=== PATIENT | male | born 1965 | race Caucasian/White ===

== ENCOUNTER 2016-12-04 19:53 | Emergency (ER) | payer SELFPAY ==
--- NOTE | 2016-12-04 20:33 | ED ---
dave Saravia Timothy, scribed for Garland Hutchins MD on 12/04/16 at 2008 . Neurological HPI - HPI Summary HPI Summary: Emely Nieto is a 51 yo male presenting to [facility] with left arm numbness and weakness for the past 2 days and speech difficulty (slurring) for the past hour. He states he is having difficulty actually forming the words he is thinking. He is not in any current pain. He denies any Hx of similar Sx. His MHx includes HI 2004, angina, CAD, cardiac catheterization, coronary stent, HLD , HTN, C PAP, GERD, arthritis, herniated disks, DM, MRSA, depression, low platelets. - History of Current Complaint Chief Complaint: EDNeurologicalDeficit Stated Complaint: LT ARM NUMBNESS/UNABLE TO SPEAK RIGHT Time Seen by Provider: 12/04/16 20:04 Last Known Well Date: 12/01/16 Hx Obtained From: Patient Onset/Duration: Sudden Onset, Started days ago Timing: Constant Onset Severity: Moderate Current Severity: Moderate Neurological Deficit Location: LUE Pain Intensity: 0 Pain Scale Used: 0-10 Numeric Character: Numbness/Tingling - LUE, Motor Weakness - LUE, Impaired Speech Associated Signs and Symptoms: Positive: Weakness - LUE, Impaired Speech, Numbness - LUE - Allergy/Home Medications Allergies/Adverse Reactions: Allergies Allergy/AdvReac Type Severity Reaction Status Date / Time No Known Allergies Allergy Verified 12/04/16 19:57 PMH/Surg Hx/FS Hx/Imm Hx Endocrine/Hematology History: Reports: Hx Diabetes Denies: Hx Thyroid Disease Cardiovascular History: Reports: Hx Angina, Hx Coronary Artery Disease, Hx Hypercholesterolemia, Hx Hypertension, Hx Myocardial Infarction - 2003 Denies: Hx Valvular Heart Disease, Other Cardiovascular Problems/Disorders Respiratory History: Denies: Hx Asthma, Hx Chronic Obstructive Pulmonary Disease (COPD), Other Respiratory Problems/Disorders GI History: Reports: Hx Gastroesophageal Reflux Disease Denies: Other GI Disorders Musculoskeletal History: Reports: Hx Arthritis Denies: Other Musculoskeletal History Sensory History: Reports: Hx Contacts or Glasses - GLASSES Denies: Hx Hearing Aid Opthamlomology History: Reports: Hx Contacts or Glasses - GLASSES Neurological History: Denies: Other Neuro Impairments/Disorders Psychiatric History: Reports: Hx Depression - Surgical History Surgery Procedure, Year, and Place: Right wrist Hx Anesthesia Reactions: No Infectious Disease History: No Infectious Disease History: Reports: Hx of Known/Suspected MRSA Denies: Traveled Outside the [place] in Last 30 Days - Family History Known Family History: Positive: Cardiac Disease, Diabetes, Other - prostate cancer - Social History Alcohol Use: None Alcohol Amount: SOBER NOW Substance Use Type: Reports: None Substance Use Comment - Amount & Last Used: SOBER 20 YRS Hx Tobacco Use: No Smoking Status (MU): Never Smoked Tobacco Have You Smoked in the Last Year: No Review of Systems Constitutional: Negative Eyes: Negative ENT: Negative Cardiovascular: Negative Respiratory: Negative Gastrointestinal: Negative Genitourinary: Negative Musculoskeletal: Negative Skin: Negative Positive: Weakness - LUE, Numbness - LUE, Slurred Speech Psychological: Normal All Other Systems Reviewed And Are Negative: Yes Physical Exam Triage Information Reviewed: Yes Vital Signs On Initial Exam: Initial Vitals Temp Pulse Resp BP Pulse Ox 97.6 F 84 16 155/79 98 12/04/16 19:59 12/04/16 19:59 12/04/16 19:59 12/04/16 19:59 12/04/16 19:59 Vital Signs Reviewed: Yes Appearance: Positive: No Pain Distress, Obese Skin: Positive: Warm Head/Face: Positive: Normal Head/Face Inspection Eyes: Positive: EOMI, IAIN ENT: Positive: Hearing grossly normal Neck: Positive: Supple Respiratory/Lung Sounds: Positive: Breath Sounds Present Cardiovascular: Positive: RRR. Negative: Murmur Abdomen Description: Positive: Nontender, Soft Bowel Sounds: Positive: Present Musculoskeletal: Positive: Strength/ROM Intact Neurological: Positive: Alert, Oriented to Person Place, Time Diagnostics - Vital Signs Vital Signs Temp Pulse Resp BP Pulse Ox 12/04/16 19:59 97.6 F 84 16 155/79 98 - Laboratory Result Diagrams: 12/04/16 21:30 12/04/16 21:30 Lab Statement: Any lab studies that have been ordered have been reviewed, and results considered in the medical decision making process. - CT Brain CT Interpretation: No Acute Changes - IMPRESSION: Normal CT of the brain. CT Interpretation Completed By: Radiologist - EKG 2028 Cardiac Rate: NL - 73 BPM EKG Interpretation: NSR @ 73 BPM, normal EKG NIH Scale - NIH Scale Level of Consciousness: Alert/Keenly Responsive Ask Patient the Month and His/Her Age: Both Correct Ask Pt to Open/Close Eyes and Creative Engagement Director/Release Non-Paretic Hand: Both Correctly Best Gaze (Only Horizontal Eye Movement): Normal Visual Field Testing: No Visual Loss Facial Paresis-Pt to Smile & Close Eyes or Grimace Symmetry: Normal/Symmetrical Motor Function - Right Arm: No Drift-Holds 10 Seconds Motor Function - Left Arm: No Drift-Holds 10 Seconds Motor Function - Right Leg: No Drift-Holds 10 Seconds Motor Function - Left Leg: No Drift-Holds 10 Seconds Limb Ataxia-Must be out of Proportion to Weakness Present: Absent Sensory (Use Pinprick to Test Arms/Legs/Trunk/Face): Normal Best Language (Describe Picture, Name Items): No Aphasia Dysarthria (Read Several Words): Slurs Some Words Extinction and Inattention: No Abnormality Total Score: 1 Re-Evaluation - Re-Evaluation First Eval Re-Evaluation Time: 22:07 Change: Unchanged Comment: Pt is requesting to sign out AMA. He was informed of the results of his lab and imaging studies, and elects to sign out AMA regardless. Course/Dx - Course Assessment/Plan: Emely Nieto is a 51 yo male presenting to [facility] with numbness and wekaness in his LUE for the past 2 days, and speech impairment for the last hour. Pt medication list reviewed this visit. His EKG suggests ?. His Brain CT suggests normal examination. After clinical examination and review of his lab and imaging studies, he will sign out AMA with Dx of CVA and renal insufficiency. - Differential Dx Differential Diagnoses Neuro: Positive: Cerebrovascular Accident - Diagnoses Provider Diagnoses: CVA (cerebral vascular accident), Renal insufficiency Discharge - Discharge Plan Condition: Fair Disposition: AGAINST MEDICAL ADVICE Discharge Disposition Comment: Pt signs out AMA after being informed of preliminary test results Referrals: Chris Wilkins MD [Primary Care Provider] - The documentation as recorded by the dave nava Timothy accurately reflects the service I personally performed and the decisions made by me, Garland Hutchins MD.
--- NOTE | 2016-12-04 20:42 | RAD ---
INDICATION: Slurred speech x2 days COMPARISON: CT brain April 01, 2016 TECHNIQUE: Contiguous axial sections of the brain were obtained from the skull base to the vertex without contrast. FINDINGS: The ventricles, cisterns and sulci are within normal limits. The odell-white matter differentiation is adequately maintained and there is no sulcal effacement. No significant focal abnormality or mass effect is present. There is no evidence for intracranial hemorrhage. No significant focal osseous abnormality is present. The visualized portion of the paranasal sinuses and mastoid air cells appear clear. IMPRESSION: Normal CT of the brain.
[2016-12-04 21:42] LABS: Hematocrit 35 % (42-52); Hemoglobin 11.8 g/dl (14.0-18.0); Mean Corpuscular HGB Conc 33 g/dl (31-36); Mean Corpuscular Hemoglobin 30 pg (27-31); Mean Corpuscular Volume 90 fL (80-94); Mean Platelet Volume 9 um3 (7.4-10.4); Red Blood Count 3.91 10^6/ul (4.0-5.4); Red Cell Distribution Width 15 % (10.5-15); White Blood Count 3.8 10^3/ul (3.5-10.8)
[2016-12-04 21:46] LABS: Add Diff/Slide Review? Slide Review Added; Comments Flag Yes
[2016-12-04 21:55] LABS: BUN/Creatinine Ratio 12.8 (8-20); Calcium 9.6 mg/dL (8.6-10.3); EGFR African American 40.9 (>60); EGFR Non-African American 31.8 (>60); Globulin 3.8 g/dL (2-4); Magnesium 1.7 mg/dL (1.9-2.7); Potassium 4.7 mmol/L (3.5-5.0); Total Bilirubin 0.8 mg/dL (0.2-1.0); Total Protein 7.8 g/dL (6.4-8.9)
[2016-12-04 22:36] VITALS: BP 116/62
== END 2016-12-04 22:33 | disposition left against medical advice (07) ==
LOC: ED 19:53
DX: I63.9 Cerebral infarction, unspecified (principal); R47.89 Other speech disturbances; R53.1 Weakness; N28.9 Disorder of kidney and ureter, unspecified; I25.119 Atherosclerotic heart disease of native coronary artery with unspecified angina pectoris; I10 Essential (primary) hypertension; Z95.5 Presence of coronary angioplasty implant and graft; E11.9 Type 2 diabetes mellitus without complications; E78.00 Pure hypercholesterolemia, unspecified; K21.9 Gastro-esophageal reflux disease without esophagitis; F32.9 Major depressive disorder, single episode, unspecified; E66.9 Obesity, unspecified; Z86.14 Personal history of Methicillin resistant Staphylococcus aureus infection
CPT/HCPCS: 36415; 70450; 80053; 83605; 83735; 85025; 93005; 99283

== ENCOUNTER 2016-12-27 00:08 | Emergency (ER) | payer SELFPAY ==
[2016-12-27] MEDS ORDERED: Tetan/Diph/Pertus SYR(Tdap)* 0.5 ML SYR(BOOSTRIX) use SYR IM ONE (00:49)
--- NOTE | 2016-12-27 00:53 | ED ---
I, Oh,Rangel, scribed for Garland Hutchins MD on 12/27/16 at 0051 . Head Injury - HPI Summary HPI Summary: This 51 y/o male presents to ED for a head injury. Pt was getting out of bed when his feet got tangled and loss his balance while attempting to get out of bed. Pt reports positive LOC of unknown duration. Positive laceration at ooccipital region with controlled bleeding at this moment. Pt is currently on ASA, but denies any other blood thinner use. Pt is not UTD with tetanus shot. Plan of care involving CT scan and tetanus shot is discussed, and pt is agreeable at this moment. - History Of Current Complaint Chief Complaint: EDHeadInjury Stated Complaint: FALL/HEAD LAC Time Seen by Provider: 12/27/16 00:47 Hx Obtained From: Patient, Medical Records Mechanism Of Injury: Blunt Trauma, Fall From A Standing Position Onset/Duration: Started Hours Ago, Traumatic Pain Intensity: 9 Pain Scale Used: 0-10 Numeric Location of Head Injury: Occipital Character: Dull Associated Signs And Symptoms: LOC Duration Unknown Anticoagulant Therapy: ASA - Allergies/Home Medications Allergies/Adverse Reactions: Allergies Allergy/AdvReac Type Severity Reaction Status Date / Time No Known Allergies Allergy Verified 12/27/16 00:23 PMH/Surg Hx/FS Hx/Imm Hx Endocrine/Hematology History: Reports: Hx Diabetes Denies: Hx Thyroid Disease Cardiovascular History: Reports: Hx Angina, Hx Coronary Artery Disease, Hx Hypercholesterolemia, Hx Hypertension, Hx Myocardial Infarction - 2003 Denies: Hx Valvular Heart Disease, Other Cardiovascular Problems/Disorders Respiratory History: Denies: Hx Asthma, Hx Chronic Obstructive Pulmonary Disease (COPD), Other Respiratory Problems/Disorders GI History: Reports: Hx Gastroesophageal Reflux Disease Denies: Other GI Disorders Musculoskeletal History: Reports: Hx Arthritis Denies: Other Musculoskeletal History Sensory History: Reports: Hx Contacts or Glasses - GLASSES Denies: Hx Hearing Aid Opthamlomology History: Reports: Hx Contacts or Glasses - GLASSES Neurological History: Denies: Other Neuro Impairments/Disorders Psychiatric History: Reports: Hx Depression - Surgical History Surgery Procedure, Year, and Place: Right wrist Hx Anesthesia Reactions: No Infectious Disease History: Yes Infectious Disease History: Reports: Hx of Known/Suspected MRSA Denies: Traveled Outside the [place] in Last 30 Days - Family History Known Family History: Positive: Cardiac Disease, Diabetes, Other - prostate cancer - Social History Alcohol Use: None Alcohol Amount: SOBER NOW Substance Use Type: Reports: None Substance Use Comment - Amount & Last Used: SOBER 20 YRS Hx Tobacco Use: No Smoking Status (MU): Never Smoked Tobacco Have You Smoked in the Last Year: No Review of Systems Negative: Fever Positive: Other - Laceration at occipital region with controlled bleeding Neurological: Other - Positive head injury All Other Systems Reviewed And Are Negative: Yes Physical Exam Triage Information Reviewed: Yes Vital Signs On Initial Exam: Initial Vitals Temp Pulse Resp BP Pulse Ox 98 F 65 16 115/63 99 12/27/16 00:24 12/27/16 00:24 12/27/16 00:24 12/27/16 00:24 12/27/16 00:24 Vital Signs Reviewed: Yes Appearance: Positive: Well-Appearing, No Pain Distress Skin: Positive: Warm, Other - 5cm occipital lac Eyes: Positive: EOMI, IAIN ENT: Positive: Hearing grossly normal Neck: Positive: Supple Respiratory/Lung Sounds: Positive: Clear to Auscultation, Breath Sounds Present Cardiovascular: Positive: RRR Abdomen Description: Positive: Nontender, Soft Musculoskeletal: Positive: Strength/ROM Intact Neurological: Positive: Sensory/Motor Intact, Alert, Oriented to Person Place, Time, Normal Gait Procedures - Laceration/Wound Repair 1 Location: head Description: Linear Laceration/Wound Explored: clean Closure: Laura #__ - 5 Diagnostics - Vital Signs Vital Signs Temp Pulse Resp BP Pulse Ox 12/27/16 00:24 98 F 65 16 115/63 99 - Laboratory Lab Statement: Any lab studies that have been ordered have been reviewed, and results considered in the medical decision making process. - CT Brain CT Interpretation: No Acute Changes - Mild involutional changes. No hemorrhage. No mass. No visible infarct. Osseous strucutres are intact. CT Interpretation Completed By: Radiologist Re-Evaluation - Re-Evaluation First Eval Re-Evaluation Time: 01:42 Change: Improved Comment: MD in room to perform lac repair Head Injury Course/Dx - Diagnoses Provider Diagnoses: Head injury, Scalp laceration Discharge - Discharge Plan Condition: Improved Disposition: HOME Patient Education Materials: Head Injury (ED), Laceration (ED), Staple Care (ED ) Referrals: Chris Wilkins MD [Primary Care Provider] - 2 Days Additional Instructions: Please have your laura removed in a week. The documentation as recorded by the Gregory nava Soohyun accurately reflects the service I personally performed and the decisions made by me, Garland Hutchins MD.
[2016-12-27 02:03] VITALS: BP 100/59
--- NOTE | 2016-12-27 07:36 | RAD ---
INDICATION: Head injury, laceration. COMPARISON: Comparison is made with a prior CT of the brain from December 04, 2016. TECHNIQUE: Contiguous axial sections of the brain were obtained from the skull base to the vertex without contrast. FINDINGS: The ventricles, cisterns and sulci are within normal limits. No significant focal abnormality or mass effect is seen. There is no evidence for hemorrhage. Soft tissue swelling and a laceration is noted in the scalp in the midline posterior to the occipital bones. No fracture is seen. The visualized portion of the paranasal sinuses and mastoid air cells appear clear. IMPRESSION: NO EVIDENCE FOR ACUTE INTRACRANIAL ABNORMALITY.
== END 2016-12-27 02:06 | disposition home or self-care (01) ==
LOC: ED 00:08
DX: S01.01XA Laceration without foreign body of scalp, initial encounter (principal); S09.90XA Unspecified injury of head, initial encounter; W19.XXXA Unspecified fall, initial encounter; Y93.9 Activity, unspecified; Y92.9 Unspecified place or not applicable; Y99.9 Unspecified external cause status
CPT/HCPCS: 70450; 90471; 90715; 99283

== ENCOUNTER 2017-04-05 10:04 | Inpatient (IN) | payer MEDICARE ==
[2017-04-05 11:11] LABS: Urine Bilirubin Negative (Negative); Urine Glucose Negative (Negative); Urine Nitrite Negative (Negative)
[2017-04-05 11:17] LABS: Comments Flag Yes; Hematocrit 38 % (42-52); Mean Corpuscular HGB Conc 34 g/dl (31-36); Mean Corpuscular Hemoglobin 29 pg (27-31); Mean Corpuscular Volume 85 fL (80-94); Mean Platelet Volume 9 um3 (7.4-10.4); Red Blood Count 4.43 10^6/ul (4.0-5.4); Red Cell Distribution Width 14 % (10.5-15); White Blood Count 4.2 10^3/ul (3.5-10.8)
[2017-04-05 11:18] LABS: Add Diff/Slide Review? Slide Review Added
[2017-04-05 11:45] LABS: ALT 43 U/L (7-52); AST 58 U/L (13-39); Albumin 3.9 g/dL (3.2-5.2); Alkaline Phosphatase 117 U/L (34-104); Anion Gap 7 mmol/L (2-11); BUN/Creatinine Ratio 11.7 (8-20); Blood Urea Nitrogen 9 mg/dL (6-24); CO2 Carbon Dioxide 25 mmol/L (22-32); Calcium 9.7 mg/dL (8.6-10.3); Chloride 105 mmol/L (101-111); EGFR African American 135.9 (>60); EGFR Non-African American 105.7 (>60); Globulin 3.5 g/dL (2-4); Glucose 157 mg/dL (70-100); Sodium 137 mmol/L (133-145); Total Protein 7.4 g/dL (6.4-8.9)
[2017-04-05 11:46] LABS: Acetaminophen < 15 mcg/mL; Alcohol < 10 mg/dL (<10); Salicylate < 2.50 mg/dL (<30)
[2017-04-05 11:59] LABS: TSH (Thyroid Stimulating Horm) 0.72 mcIU/mL (0.34-5.60)
--- NOTE | 2017-04-05 12:35 | ED ---
Psychiatric Complaint - HPI Summary HPI Summary: Patient presents to the ED with feelings of hopelessness since he is "dying." When asked why he comes to the ED, he states "its my blood, its thinning and I have less than a year to live." This, however is not confirmed and he is unable to tell me what health problems he has which have been confirmed. He also states its affecting his processing and most of it is in his head. Denies SI/HI. Denies etoh or drug use. Denies medication use. - History Of Current Complaint Chief Complaint: EDMentalHealth Time Seen by Provider: 04/05/17 10:13 Hx Obtained From: Patient Onset/Duration: Gradual Onset Timing: Constant Severity Initially: Moderate Severity Currently: Moderate Character: Depressed, Fearful Aggravating Factor(s): Nothing Alleviating Factor(s): Nothing Associated Signs And Symptoms: Positive: Negative Related History: Positive For: Prior Psychiatric Issues - Risk Factor(s) Completed Suicide Risk Factors: Male, White [place] - Allergies/Home Medications Allergies/Adverse Reactions: Allergies Allergy/AdvReac Type Severity Reaction Status Date / Time No Known Allergies Allergy Verified 04/05/17 21:50 Home Medications: Home Medications Aspirin EC Low Dose* [Ecotrin EC Low Dose 81 MG*] 81 mg PO DAILY 04/05/17 [ History Confirmed 04/05/17] Lisinopril TAB* [Prinivil TAB*] 10 mg PO DAILY 04/05/17 [History Confirmed 04/05] Metoprolol Tartrate TAB* [Lopressor TAB*] 25 mg PO BID 04/05/17 [History Confirmed 04/05/17] Multivitamins/Minerals TAB* [Theragran/minerals TAB*] 1 tab PO DAILY 04/05/17 [ History Confirmed 04/05/17] PMH/Surg Hx/FS Hx/Imm Hx Previously Healthy: Yes Endocrine/Hematology History: Reports: Hx Anticoagulant Therapy - ASA, Hx Diabetes Denies: Hx Thyroid Disease Cardiovascular History: Reports: Hx Angina, Hx Coronary Artery Disease, Hx Hypercholesterolemia, Hx Hypertension, Hx Myocardial Infarction - 2003 Denies: Hx Valvular Heart Disease, Other Cardiovascular Problems/Disorders Respiratory History: Denies: Hx Asthma, Hx Chronic Obstructive Pulmonary Disease (COPD), Other Respiratory Problems/Disorders GI History: Reports: Hx Gastroesophageal Reflux Disease Denies: Other GI Disorders Musculoskeletal History: Reports: Hx Arthritis Denies: Other Musculoskeletal History Sensory History: Reports: Hx Contacts or Glasses - GLASSES Denies: Hx Hearing Aid Opthamlomology History: Reports: Hx Contacts or Glasses - GLASSES Neurological History: Denies: Other Neuro Impairments/Disorders Psychiatric History: Reports: Hx Depression - Surgical History Surgery Procedure, Year, and Place: Right wrist Hx Anesthesia Reactions: No - Immunization History Date of Tetanus Vaccine: unknown Hx Pertussis Vaccination: No Immunizations Up to Date: Unable to Obtain/Confirm Infectious Disease History: Yes Infectious Disease History: Reports: Hx of Known/Suspected MRSA Denies: Traveled Outside the [place] in Last 30 Days - Family History Known Family History: Positive: Cardiac Disease, Diabetes, Other - prostate cancer - Social History Occupation: Unemployed Lives: Alone Alcohol Use: None Alcohol Amount: SOBER NOW Hx Substance Use: No Substance Use Type: Reports: None Substance Use Comment - Amount & Last Used: SOBER 20 YRS Hx Tobacco Use: No Smoking Status (MU): Never Smoked Tobacco Have You Smoked in the Last Year: No Review of Systems Constitutional: Negative Negative: Fever, Chills, Fatigue Eyes: Negative Cardiovascular: Negative Respiratory: Negative Negative: Shortness Of Breath, Cough Gastrointestinal: Negative Genitourinary: Negative Positive: no symptoms reported, see HPI Neurological: Negative Positive: Anxious All Other Systems Reviewed And Are Negative: Yes Physical Exam Triage Information Reviewed: Yes Vital Signs On Initial Exam: Initial Vitals Temp Pulse Resp BP Pulse Ox 96.9 F 79 18 191/79 98 04/05/17 10:13 04/05/17 10:13 04/05/17 10:13 04/05/17 10:13 04/05/17 10:13 Vital Signs Reviewed: Yes Appearance: Positive: Well-Appearing, Well-Nourished Skin: Positive: Warm, Skin Color Reflects Adequate Perfusion Head/Face: Positive: Normal Head/Face Inspection Eyes: Positive: Normal, IAIN, Conjunctiva Clear Neck: Positive: Supple, No Lymphadenopathy Respiratory/Lung Sounds: Positive: Clear to Auscultation, Breath Sounds Present Cardiovascular: Positive: Normal, RRR, Pulses are Symmetrical in both Upper and Lower Extremities Musculoskeletal: Positive: Normal, Strength/ROM Intact Neurological: Positive: Speech Normal Psychiatric: Positive: Anxious, Depressed AVPU Assessment: Alert - [place] Coma Scale Coma Scale Total: 15 Diagnostics - Vital Signs Vital Signs Temp Pulse Resp BP Pulse Ox 04/05/17 10:13 96.9 F 79 18 191/79 98 - Laboratory Lab Results: Lab Results 04/05/17 04/05/17 04/05/17 Range/Units 09:05 09:05 11:00 WBC 4.2 (3.5-10.8) 10^3/ul RBC 4.43 (4.0-5.4) 10^6/ul Hgb 13.0 L (14.0-18.0) g/dl Hct 38 L (42-52) % MCV 85 (80-94) fL MCH 29 (27-31) pg MCHC 34 (31-36) g/dl RDW 14 (10.5-15) % Plt Count 75 L (150-450) 10^3/ul MPV 9 (7.4-10.4) um3 Neut % (Auto) 59.0 (38-83) % Lymph % (Auto) 25.8 (25-47) % [place] % (Auto) 8.8 (1-9) % Eos % (Auto) 5.8 (0-6) % Baso % (Auto) 0.6 (0-2) % Absolute Neuts (auto) 2.5 (1.5-7.7) 10^3/ul Absolute Lymphs (auto) 1.1 (1.0-4.8) 10^3/ul Absolute Monos (auto) 0.4 (0-0.8) 10^3/ul Absolute Eos (auto) 0.2 (0-0.6) 10^3/ul Absolute Basos (auto) 0 (0-0.2) 10^3/ul Absolute Nucleated RBC 0.01 10^3/ul Nucleated RBC % 0.2 Sodium 137 (133-145) mmol/L Potassium 4.0 (3.5-5.0) mmol/L Chloride 105 (101-111) mmol/L Carbon Dioxide 25 (22-32) mmol/L Anion Gap 7 (2-11) mmol/L BUN 9 (6-24) mg/dL Creatinine 0.77 (0.67-1.17) mg/dL Est GFR ( Amer) 135.9 (>60) Est GFR (Non-Af Amer) 105.7 (>60) BUN/Creatinine Ratio 11.7 (8-20) Glucose 157 H (70-100) mg/dL Calcium 9.7 (8.6-10.3) mg/dL Total Bilirubin 1.00 (0.2-1.0) mg/dL AST 58 H (13-39) U/L ALT 43 (7-52) U/L Alkaline Phosphatase 117 H (34-104) U/L Total Protein 7.4 (6.4-8.9) g/dL Albumin 3.9 (3.2-5.2) g/dL Globulin 3.5 (2-4) g/dL Albumin/Globulin Ratio 1.1 (1-3) TSH 0.72 (0.34-5.60) mcIU/mL Urine Color Yellow Urine Appearance Clear Urine pH 6.0 (5-9) Ur Specific [place] 1.016 (1.010-1.030) Urine Protein Negative (Negative) Urine Ketones Negative (Negative) Urine Blood Negative (Negative) Urine Nitrate Negative (Negative) Urine Bilirubin Negative (Negative) Urine Urobilinogen Positive H (Negative) Ur Leukocyte Esterase Negative (Negative) Urine Glucose Negative (Negative) Salicylates < 2.50 (<30) mg/dL Acetaminophen < 15 mcg/mL Serum Alcohol < 10 (<10) mg/dL Result Diagrams: 04/05/17 09:05 04/05/17 09:05 Lab Statement: Any lab studies that have been ordered have been reviewed, and results considered in the medical decision making process. Course/Dx - Course Course Of Treatment: Patient evaluated for MHU. He is cleared for an evaluation. - Differential Dx/Clinical Impression Differential Diagnosis/HQI/PQRI: Positive: Anxiety, Depression Provider Diagnosis: Anxiety about health Discharge - Discharge Plan Condition: Stable Disposition: ADMITTED TO [facility]
[2017-04-05] MEDS ORDERED: Nicotine Inhaler* 10 MG AMP INH PRN (14:55)
[2017-04-05] MEDS ORDERED: Nicotine GUM* 2 MG PO PRN (14:55)
[2017-04-05] MEDS ORDERED: Al Hydrox/Mg Hydrox/Simet LIQ* 30 ML UDC PO PRN (14:55)
[2017-04-05] MEDS: glipiZIDE TAB* 5 MG PO SCH (17:00)
[2017-04-05] MEDS: Multivitamins/Minerals TAB PO SCH (17:00)
[2017-04-05] MEDS: Lisinopril TAB* 10 MG PO SCH (17:00)
[2017-04-05] MEDS: Atorvastatin* 40 MG TAB PO SCH (17:34)
[2017-04-05] MEDS: Metoprolol Tartrate TAB* 25 MG PO SCH (20:05)
[2017-04-05] MEDS: metFORMIN* 500 MG TAB PO SCH (20:05)
[2017-04-06] MEDS ORDERED: traZODone TAB* 50 MG TAB ONE (01:37)
[2017-04-06] MEDS ORDERED: traZODone TAB* 50 MG TAB PO PRN (02:40)
[2017-04-06] MEDS: Atorvastatin* 40 MG TAB PO SCH (09:12)
[2017-04-06] MEDS: Aspirin EC Low Dose* 81 MG TAB.EC PO SCH (09:12)
[2017-04-06] MEDS: glipiZIDE TAB* 5 MG PO SCH (09:12)
[2017-04-06] MEDS: Vitamin THERAPEUTIC TAB PO SCH ×2 (09:13→09:29)
[2017-04-06] MEDS: Lisinopril TAB* 10 MG PO SCH (09:13)
[2017-04-06] MEDS: metFORMIN* 500 MG TAB PO SCH ×2 (09:13→20:42)
[2017-04-06] MEDS: Multivitamins/Minerals TAB PO SCH (09:13)
[2017-04-06] MEDS: Metoprolol Tartrate TAB* 25 MG PO SCH ×2 (09:13→20:43)
[2017-04-06] MEDS: Sertraline* 50 MG TAB PO SCH (09:14)
[2017-04-06] MEDS ORDERED: Nitroglycerin TAB 0.4 MG* 0.4 MG TAB SL PRN (21:32)
--- NOTE | 2017-04-07 00:05 | HP ---
HISTORY AND PHYSICAL: DATE OF ADMISSION: 04/05/17 IDENTIFYING DATA: Mr. Han is a , medically disabled, 51-year-old male who was admitted on emergency status because of suicidal ideation and inability to contract for safety. CHIEF COMPLAINT: "Basically, I came down here to !" HISTORY OF PRESENT ILLNESS: The patient relates having a history of recurrent depressive episodes for the past 17 years that he has been off all medications for the past 30 days because of insurance issues. He moved his and grandchildren to [place], [place], about 4 months ago and he went there for the last month. He asserts that he said his goodbye to his family and he returned to [facility] last and that he had discussed with his that because of his multiple health issues it was only a matter of days before he will . The patient described having had 5 myocardial infarctions, 2 strokes , he has chronic back pain from having 2 herniated disks, hypertension, hypercholesterolemia, diabetes, and he relates that he was not able to refill his prescription and his insurance got canceled while he was in [place] and he had to discontinue taking the medications. He went through severe withdrawal symptoms and he decided not to restart any medication as a result. He reportedly had a friend drive him to the emergency room of this hospital yesterday. He was at first evaluated for medical symptoms, but then during the evaluation, he complained of feeling depressed and suicidal, then he was admitted involuntarily. The patient described several-week symptoms now of low mood, anhedonia, "I am ready to ." He denies previous justino suicide attempt , any history of self-injury. He denies intent or plan to take his own life. He asserts that he is aware that suicide affects the 3 subsequent generations and that he will never do such a thing to his grandchildren. He expresses his guilt and he complains of difficulty with his attention and concentration. He has chronic issues with sleep because of obstructive sleep apnea. He endorses daytime tiredness and low energy. Denies any difficulty with eating, but asserts that he has lost about 15 pounds in the last 5 days because of "kidney issues." REVIEW OF PSYCHIATRIC SYMPTOMS: The patient denies symptoms of leatha or psychosis. He endorses worrying excessively, but he denies irritability, muscle tension. He denies panic attack, obsessive thoughts, compulsive rituals. He endorses some preoccupation that he is dying. He denies any history of trauma, abuse, or PTSD symptoms. He denies symptoms of eating disorder. 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 PAST PSYCHIATRIC HISTORY: The patient has history of 1 previous admission here in this unit in April of 2011 and prior to that, he had had a couple of admissions at [facility]. He was previously diagnosed with major depression, recurrent, severe without psychotic features. He has had outpatient care in the past at [facility]. He had also seen Dr. Willy Grullon in private practice about a year. He has been under the care of Dr. Eric palencia for the past 2 to 3 years. He is unable to recall last regimen of medication as he discontinued taking all prescribed medications. SUICIDE/HOMICIDE HISTORY: He denies any previous justino suicide attempts, self- injury, or any history of violence. PAST MEDICAL HISTORY: Remarkable for severe heart disease with 5 previous myocardial infarctions, placement of 4 stents. He is status post CVA x2. Additionally, he is morbidly obese, suffers from chronic back pain from 2 herniated disks, hypertension, diabetes, hypercholesterolemia, and obstructive sleep apnea. He does not currently have a primary care physician because of insurance issues, was last under the care of Dr. Chris Wilkins at [facility] and had also seen Dr. Faustino Castro for management of pain. SUBSTANCE ABUSE HISTORY: The patient relates that he was alcohol dependent for 20 years and has been sober for 20 years. He has been on opioid analgesics for several years because of chronic back pain, but he denies ever misusing his prescription. He denies the use of illicit drugs or tobacco. FAMILY HISTORY: The patient reports family history of polysubstance dependence and unspecified psychotic illness in his half brother. PERSONAL AND SOCIAL HISTORY: The patient was born and raised in this area by his maternal grandfather. He is the youngest of 3. His father was not around. His mother worked constantly to take care of him and his 2 siblings and left him in the care of his grandfather. The patient graduated from high school, also took vocational classes in high school for industrial electronics. 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 The patient has no service. He has been with his for 27 years and legally for the last 3. They have no children together. His 's daughter has 3 children that he considers his own grandchildren. The patient relocated his and grandchildren to [place], [place], where his who is an LP and is working on getting her degree as an RN. The patient asserts that he said his goodbyes to his family and he is not expecting to see them again alive. REVIEW OF MEDICAL SYMPTOMS: Back pain, general malaise, fatigue. PHYSICAL EXAMINATION GENERAL: He is a tall, morbidly obese, white male who looks his stated age. He appears to be in [id number]-[id number] distress. He walks with an antalgic gait. VITAL SIGNS: On admission, blood pressure is 147/91, pulse 79, respirations 16 , temperature 98.4. HEENT: Head: Atraumatic, normocephalic, symmetrical. Eyes: PERRLA. Tympanic membranes intact. Sclerae anicteric. Conjunctivae clear. NECK: Trachea midline, freely mobile. No cervical lymphadenopathy. No nuchal rigidity. LUNGS: Clear to auscultation bilaterally. HEART: Regular rate and rhythm. No murmur, gallops, or rubs. BREAST EXAM: No masses or discharge. ABDOMEN: Obese, but soft, nontender to palpation. Normal bowel sounds heard in all 4 quadrants. The patient has scars of previous gallbladder surgery. EXTREMITIES: No clubbing, cyanosis, edema, or varicosities noted. Pulses are equal and adequate in all 4 extremities. GENITAL EXAM: Not performed. RECTAL EXAM: Not performed. NEUROLOGIC: Cranial nerves II through XII are intact. Cerebellar function intact. Muscle strength grade 3/5 in lower extremities and 4/5 in upper extremities. STRUCTURAL EXAM: The patient examined in both supine and upright positions. No gross AP or lateral asymmetry. Gait and movement are within normal limits. SKIN: Skin texture, turgor, and pigmentation are within normal limits. MENTAL STATUS EXAMINATION: Finds a tall, obese 51-year-old male with male- balding hair pattern, who looks older than stated age. He is adequately groomed , casually dressed. He makes fair eye contact. He is polite, cooperative. He exhibits some degree of psychomotor retardation. No abnormal movements are observed. His speech is spontaneous, normal rate, rhythm, and volume. His affect is constricted. Mood is depressed. Thoughts are linear and goal directed. No evidence of formal thought disorder. No overt delusions. He denies auditory or visual hallucination. The patient endorses passive wish. He denies active suicidal ideation, intent, or plan, and he contracts for safety in this setting. His insight and judgment are limited. Impulse control is good. He is alert. He is oriented to time, place, and person. Attention, memory, and concentration are all fair. His fund of knowledge is adequate. Intelligence is estimated to be in normal average range. LABORATORY DATA: On admission, CBC shows hemoglobin of 13, hematocrit of 38, platelet count of 75. Complete metabolic panel shows nonfasting glucose of 157 , AST of 58, ALT of 43. Urinalysis is positive for urobilinogen. Urine toxicology screen is negative for salicylate, acetaminophen, and serum alcohol. Urine drug toxicology screen could not be found. SUMMARY: A 51-year-old male with history of previous hospitalization, previous outpatient care, previous medication trial including opioid analgesics because of chronic back pain, who was referred by a friend and was admitted because of suicidal ideation and inability to contract for safety in the setting of discontinuation of all his meds about a month ago and in the context of chronic pain and multiple health issues. The patient has past history of alcohol dependence. He denies misuse of prescribed opioid analgesics. There is a family history of polysubstance dependence and unspecified psychosis in a half sibling. The patient describes stressors of chronic back pain, financial strain on his family, multiple health issues, and desire to not let his family witness his last days, despair, pain, and trauma. DIAGNOSTIC IMPRESSION: 1. Mood disorder secondary to general medical condition (herniated disk, coronary artery disease, status post cerebrovascular accident, obesity, hypertension, diabetes, hypercholesterolemia). 2. Major depressive disorder, recurrent, severe, without psychotic features. 3. Unspecified anxiety disorder. TREATMENT PLAN: Admit to mental health unit, 15-minute checks, full code status. Legal status is emergency. Initiate comprehensive milieu, individual, and group psychotherapeutic support. Medication management was involved, obtaining a list of the patient's previous medication regimen and restart him on them as safely as he can be. We will also confer with Dr. Palencia and Dr. Castro. Discharge planning will involve coordination of his aftercare with outpatient psychiatric providers and with input from his family. [id number]/CPS #: [id number] GORDY
[2017-04-07] MEDS ORDERED: Mirtazapine TAB* 15 MG ONE (00:35)
[2017-04-07] MEDS ORDERED: Mirtazapine TAB* 15 MG PO ONE (02:00)
[2017-04-07] MEDS: metFORMIN* 500 MG TAB PO SCH ×2 (09:23→21:19)
[2017-04-07] MEDS: Atorvastatin* 40 MG TAB PO SCH (09:23)
[2017-04-07] MEDS: Metoprolol Tartrate TAB* 25 MG PO SCH ×2 (09:23→21:19)
[2017-04-07] MEDS: Vitamin THERAPEUTIC TAB PO SCH (09:23)
[2017-04-07] MEDS: Lisinopril TAB* 10 MG PO SCH (09:23)
[2017-04-07] MEDS: Aspirin EC Low Dose* 81 MG TAB.EC PO SCH (09:23)
[2017-04-07] MEDS: glipiZIDE TAB* 5 MG PO SCH (09:23)
[2017-04-07] MEDS: Multivitamins/Minerals TAB PO SCH (09:23)
[2017-04-07] MEDS: Sertraline* 50 MG TAB PO SCH (09:25)
[2017-04-08] MEDS: metFORMIN* 500 MG TAB PO SCH ×2 (10:37→20:52)
[2017-04-08] MEDS: Atorvastatin* 40 MG TAB PO SCH (10:38)
[2017-04-08] MEDS: Metoprolol Tartrate TAB* 25 MG PO SCH ×2 (10:38→20:52)
[2017-04-08] MEDS: Multivitamins/Minerals TAB PO SCH (10:38)
[2017-04-08] MEDS: Aspirin EC Low Dose* 81 MG TAB.EC PO SCH (10:38)
[2017-04-08] MEDS: Vitamin THERAPEUTIC TAB PO SCH (10:38)
[2017-04-08] MEDS: Sertraline* 50 MG TAB PO SCH (10:38)
[2017-04-08] MEDS: Lisinopril TAB* 10 MG PO SCH (10:38)
[2017-04-08] MEDS: glipiZIDE TAB* 5 MG PO SCH (10:38)
--- NOTE | 2017-04-08 14:05 | PN ---
Subjective - Subjective Service Type: 28841 Hosp care 15 min low complexity Subjective: Patient noted to be visible at times in the milieu. He is noted to continue to be focused on his failing physical health. He reported in the ED he came back to [place] to . He continues to make statements to staff reporting feelings he is ready to . Patient is noted to be med and meal compliant. Patient has completed all ADLs, displaying fair grooming and hygiene. Patient noted over the weekend to be calm ,cooperative, depressed in affect and manner. Patient reports stress also from his recently moving his family's move from [place] to [place] for his 's job as a [employer] and to give the kids better schools. Patient has allowed this provider to call his , Jessica(#[phone]). Unable to leave a message when this provider called today. Patient's contacted by staff over the weekend. Patient's noted to have backed up the patients history. Patient reports he has caused his family alot of pain. Patient reports he flew back to [place] to get his meds re-started. Patient reports he plans to return from [place] every three months as his workman comp pays for the trips. Patient reports his psychiatrist is Dr. Rosenbaum. Patient reports also >20lb wt. loss that he attributes completely to diuresis. He reports the wt. loss started 5 days ago, and reports more caloric intake daily in the last 5 days, yet he reports producing large quantities of urine. Patient reports not taking his opioid pain pills in >30 days since running out. Patient reports starting pain pills daily approx. 17yrs ago when his back was injured on the job. Patient also reports a hx of DM, HTN and significant TN and CAD hx. He is neutropenic and ED recommendation has been followed with this provider ordering an oncology consult. Will attempt to contact patient's featheredger and reducer machine. Patient reports he has not slept in "more than a month". Patient reports hx multiple failed antidepressant trials. Patient reported his desire to stay on Zoloft as it has been most effective. Patient informed this provider will discuss meds with oncology prior to changing his psychotropic med regimen. Objective - Appearance Appearance: Obese Dysmorphic Features: No Hygiene: Normal Grooming: Fairly Well Kept - Behavior Psychomotor Activities: Normal Exhibits Abnormal Movement: No - Attitude and Relatedness Attitude and Relatedness: Cooperative Eye Contact: Good - Speech Quality: Unpressured Latencies: Normal Quantity: Appropriate - Mood Patient's Decription of Mood: "Anxious" - Affect Observed Affect: Depressed Affect Consistent with: Dysphoria - Thought Process Patient's Thought Process: Coherent Thought Content: Yes Passive Wish, No Suicidal Planning, No Homicidal Ideation, No Paranoid Ideation - Sensorium Experiencing Hallucinations: No, Sensorium is Clear Type of Hallucinations: Visual: No, Auditory: No, Command: No - Level of Consciousness Level of Consciousness: Alert Orientation: Yes Intact, Yes Orientated to Time, Yes Orientated to Place, Yes Orientated to Person - Impulse Control Impulse Control: Intact - Insight and Judgement Insight and Judgement: Fair - Group Participation Particating in Group Activities: Yes - Medication Management Medication Management Adherence: Yes Assessment - Assessment Merits Inpatient Hospitalization: For Immediate Safety, For Stabilization Inpatient DSM-IV Dx: 1. MDD, R, S w/PFs. 2. Illness Anxiety d/o Plan - Plan Treatment Plan: Name: ROSALINA ROWE Birthdate: 1965 [id number] 1. Continue admission to [facility] for safety and for symptom mx. 2. Continue patient on currently Rx'd Zoloft 50mg po qam for anxiety/depressive d/o. 3. Continue patient on currently Rx'd Mirtazepine at increased dose of 30mg po qhs for anxiety/mood/insomnia. 4. Will await input from and Oncology as to patient dx appropriate changes in psychotropic med regimen. 5. Attempted to talk with patient's ,Jessica #[phone], unable to leave . 6. Obtain collateral information from recent outpt provider. 7. Patient to attend groups and participate in milieu activities. Continued Medication Management: Continue Outpt Medication Medications: Current Medications Acetaminophen (Tylenol Tab*) 650 mg PO Q4H PRN PRN Reason: for pain; or Temp >101 F Al Hydrox/Mg Hydrox/Simethicone (Maalox Plus*) 30 ml PO Q4H PRN PRN Reason: INDIGESTION Last Admin: 04/05/17 20:05 Dose: 30 ml Aspirin (Aspirin Ec Low Dose*) 81 mg PO DAILY [facility] Last Admin: 04/08/17 10:38 Dose: 81 mg Atorvastatin Calcium (Lipitor*) 40 mg PO DAILY [facility] Last Admin: 04/08/17 10:38 Dose: 40 mg Glipizide (Glucotrol Tab*) 5 mg PO QAM [facility] Last Admin: 04/08/17 10:38 Dose: 5 mg Lisinopril (Prinivil Tab*) 10 mg PO DAILY [facility] Last Admin: 04/08/17 10:38 Dose: 10 mg Metformin HCl (Glucophage*) 1,000 mg PO BID [facility] Last Admin: 04/08/17 10:37 Dose: 1,000 mg Metoprolol Tartrate (Lopressor Tab*) 25 mg PO BID [facility] Last Admin: 04/08/17 10:38 Dose: 25 mg Multivitamins (Theragran Tab*) 1 tab PO DAILY [facility] Last Admin: 04/08/17 10:38 Dose: 1 tab Multivitamins/Minerals (Theragran/Minerals Tab*) 1 tab PO DAILY [facility] Last Admin: 04/08/17 10:38 Dose: 1 tab Nicotine (Nicotine Inhaler*) 10 mg INH Q2H PRN PRN Reason: CRAVING Nicotine Polacrilex (Nicotine Gum*) 2 mg PO Q2H PRN PRN Reason: CRAVING Nitroglycerin (Nitroglycerin Tab 0.4 Mg*) 0.4 mg SL Q5M PRN PRN Reason: CHEST PAIN Sertraline HCl (Zoloft*) 50 mg PO DAILY [facility] Last Admin: 04/08/17 10:38 Dose: Not Given - Discharge Plan Discharge Plan: Outpatient Follow Up Outpatient Program: [facility]
[2017-04-08] MEDS ORDERED: Mirtazapine TAB* 15 MG PO SCH (21:00)
[2017-04-09] MEDS: metFORMIN* 500 MG TAB PO SCH ×2 (09:00→21:16)
[2017-04-09] MEDS: Multivitamins/Minerals TAB PO SCH (09:00)
[2017-04-09] MEDS: glipiZIDE TAB* 5 MG PO SCH (09:01)
[2017-04-09] MEDS: Aspirin EC Low Dose* 81 MG TAB.EC PO SCH (09:01)
[2017-04-09] MEDS: Vitamin THERAPEUTIC TAB PO SCH (09:01)
[2017-04-09] MEDS: Metoprolol Tartrate TAB* 25 MG PO SCH ×2 (09:02→21:16)
[2017-04-09] MEDS: Sertraline* 50 MG TAB PO SCH (09:02)
[2017-04-09] MEDS: Lisinopril TAB* 10 MG PO SCH (09:02)
[2017-04-09] MEDS: Atorvastatin* 40 MG TAB PO SCH (09:02)
[2017-04-09 09:41] LABS: HDL Cholesterol 35.7 mg/dL
--- NOTE | 2017-04-09 14:09 | PN ---
Subjective - Subjective Service Type: 01339 Hosp care 15 min low complexity Subjective: Patient noted to be visible at times in the milieu, isolative mostly. Patient noted to be calm in affect and is more organized and linear in TP. He reports no longer feeling he is dying, but reports he got scared when, the week prior to his ED presentation he began losing significant weight and urinating more than nml. He reported on admission he'd lost 20lbs due to diuresing. He reports today he had not been compliant with his CPAP since his move from [place] to [place] 1 month ago. He reports he was compliant with it last night. Patient educated mood and anxiety and be affected by poor sleep and poor oxygenation from not sleeping with his CPAP each night. Patient acknowledged understanding. This provider still has not been able to speak with patient's . Patient aware this provider has consulted cardiology and oncology for mx of his neutropenia and caridac issues as patient has not been seen for these issues in months and has not been med compliant in at least 1 month. Patient reports poor sleep continues. Will initiate Trazodone 100mg po qhs for insomnia. Mirtazepine will be discontinued due to ineffectiveness. Still awaiting discussion with patient's for collateral information on med hx and his overall HPI. Objective - Appearance Appearance: Well Developed/Nourished Dysmorphic Features: No Hygiene: Normal Grooming: Well Kept - Behavior Psychomotor Activities: Normal Exhibits Abnormal Movement: No - Attitude and Relatedness Attitude and Relatedness: Cooperative Eye Contact: Good - Speech Quality: Unpressured Latencies: Normal Quantity: Appropriate - Mood Patient's Decription of Mood: "Anxious" - Affect Observed Affect: Fair Affect Consistent with: Dysphoria - Thought Process Patient's Thought Process: Coherent Thought Content: No Passive Wish, No Suicidal Planning, No Homicidal Ideation, No Paranoid Ideation - Sensorium Experiencing Hallucinations: No, Sensorium is Clear Type of Hallucinations: Visual: No, Auditory: No, Command: No - Level of Consciousness Level of Consciousness: Alert Orientation: Yes Intact, Yes Orientated to Time, Yes Orientated to Place, Yes Orientated to Person - Impulse Control Impulse Control: Intact - Insight and Judgement Insight and Judgement: Fair - Group Participation Particating in Group Activities: Yes - Medication Management Medication Management Adherence: Yes Assessment - Assessment Merits Inpatient Hospitalization: For Immediate Safety, For Stabilization Inpatient DSM-IV Dx: 1. MDD, R, S w/PFs. 2. Illness Anxiety d/o Plan - Plan Treatment Plan: Name: ROSALINA ROWE Birthdate: 1965 [id number] 1. Continue admission to [facility] for safety and for symptom mx. 2. Continue patient on currently Rx'd Zoloft 50mg po qam for anxiety/depressive d/o. 3. Will D/C Mirtazepine due to ineffectiveness on insomnia. 4. Will start Trazodone 100mg po qhs for anxiety/mood/insomnia. 5. Will awaiting input from and Oncology as to patient dx appropriate changes in psychotropic med regimen. 6. Attempted to talk with patient's ,Jessica #[phone], unable to leave . 7. Obtain collateral information from recent outpt provider. 8. Patient to attend groups and participate in milieu activities. Continued Medication Management: Different Medication Medications: Current Medications Acetaminophen (Tylenol Tab*) 650 mg PO Q4H PRN PRN Reason: for pain; or Temp >101 F Al Hydrox/Mg Hydrox/Simethicone (Maalox Plus*) 30 ml PO Q4H PRN PRN Reason: INDIGESTION Last Admin: 04/05/17 20:05 Dose: 30 ml Aspirin (Aspirin Ec Low Dose*) 81 mg PO DAILY [facility] Last Admin: 04/09/17 09:01 Dose: 81 mg Atorvastatin Calcium (Lipitor*) 40 mg PO DAILY [facility] Last Admin: 04/09/17 09:02 Dose: 40 mg Glipizide (Glucotrol Tab*) 5 mg PO QAM [facility] Last Admin: 04/09/17 09:01 Dose: 5 mg Lisinopril (Prinivil Tab*) 10 mg PO DAILY [facility] Last Admin: 04/09/17 09:02 Dose: 10 mg Metformin HCl (Glucophage*) 1,000 mg PO BID [facility] Last Admin: 04/09/17 09:00 Dose: 1,000 mg Metoprolol Tartrate (Lopressor Tab*) 25 mg PO BID [facility] Last Admin: 04/09/17 09:02 Dose: 25 mg Mirtazapine (Remeron Tab*) 7.5 mg PO BEDTIME [facility] Last Admin: 04/08/17 20:52 Dose: 7.5 mg Multivitamins (Theragran Tab*) 1 tab PO DAILY [facility] Last Admin: 04/09/17 09:01 Dose: 1 tab Multivitamins/Minerals (Theragran/Minerals Tab*) 1 tab PO DAILY [facility] Last Admin: 04/09/17 09:00 Dose: 1 tab Nicotine (Nicotine Inhaler*) 10 mg INH Q2H PRN PRN Reason: CRAVING Nicotine Polacrilex (Nicotine Gum*) 2 mg PO Q2H PRN PRN Reason: CRAVING Nitroglycerin (Nitroglycerin Tab 0.4 Mg*) 0.4 mg SL Q5M PRN PRN Reason: CHEST PAIN Sertraline HCl (Zoloft*) 50 mg PO DAILY [facility] Last Admin: 04/09/17 09:02 Dose: 50 mg - Discharge Plan Discharge Plan: Outpatient Follow Up Outpatient Program: [facility]
[2017-04-09] MEDS ORDERED: traZODone TAB* 100 MG PO SCH (21:00)
--- NOTE | 2017-04-09 22:53 | CONS ---
CC: Dr. Chris Wilkins; Dr. Rasheed Tidwell; Dr. Uriostegui of the Psychiatry Department * CARDIOLOGY CONSULTATION: DATE OF CONSULT: 04/09/17 INDICATION FOR CONSULTATION: Coronary artery disease. HISTORY OF PRESENT ILLNESS: The patient is a 51-year-old gentleman with a history of coronary artery disease who is admitted to the [facility] for depression. Consultation was asked for help with his cardiac medications. In speaking with the patient, the patient denies any true anginal type symptoms. He denies any orthopnea. He denies any PND. The patient does use CPAP machine at night, for which he is having trouble keeping the CPAP on through all the night. He is being evaluated by Respiratory Therapy for his CPAP. The patient is also concerned that he has decreased blood flow to his brain causing some of his psychiatric issues. The patient is concerned that he has blockages to the carotid arteries that is causing his symptoms. The patient does have a history of coronary artery disease, history of coronary artery stenting. He had been on Plavix for his stents, but was stopped due to being more than a year out and because of his low platelets. PAST MEDICAL HISTORY: Significant for coronary artery disease, sleep apnea, depression, hypertension, hyperlipidemia, obesity. MEDICATIONS: Outpatient medications: 1. Lipitor 40 mg a day. 2. OxyContin as directed. 3. Metformin 1000 mg b.i.d. 4. Trileptal 150 mg b.i.d. 5. Adderall. 6. Cymbalta 60 mg a day. 7. Abilify 10 mg a day. 8. Aspirin 81 mg a day. 9. Lisinopril 10 mg a day. 10. Metoprolol tartrate 25 mg b.i.d. 11. Glipizide 5 mg a day. 12. Remeron 30 mg a day. 13. Ativan. 14. Lyrica. His inpatient medications: 1. Aspirin 81 mg a day. 2. Lipitor 40 mg a day. 3. Glipizide 5 mg a day. 4. Lisinopril 10 mg a day. 5. Metformin 1000 mg b.i.d. 6. Metoprolol 25 mg b.i.d. 7. Multivitamin. 8. Nicotine patch. 9. Zoloft 50 mg a day. 10. Trazodone 100 mg q.h.s. ALLERGIES: No known drug allergies. SOCIAL HISTORY: He is . He denies tobacco use. Rare alcohol use. PHYSICAL EXAMINATION: Height is 6 feet, weight 240 pounds, temperature 97.8, heart rate is 72, blood pressure 139/58, respiratory rate is 16. Sclerae anicteric. Oropharynx is pink without erythema. Carotids are 2+ without bruits. JVD is normal. Thyroid is normal. Cardiac Exam: S1, S2, without any murmurs, rubs, or gallops. PMI is normal. Lungs are clear to auscultation bilaterally. There is no dullness to percussion. Abdomen is soft, nontender, nondistended, with normoactive bowel sounds. Extremities show no edema. He has 2+ pulses throughout. The patient is awake, alert, and oriented. The patient moves all 4 extremities equally. LABORATORY DATA: Laboratory studies from 04/05/17, his CBC is within normal limits. Chemistry from 04/05/17 is normal. BUN 9, creatinine 0.7. TSH 0.72. AST and ALT are essentially normal. IMPRESSION: This is a 51-year-old gentleman with a history of coronary artery disease who is admitted to the hospital for psychiatric issues. In general, I cannot elicit any specific cardiac symptoms at this time. The patient is currently on his appropriate medications. He is on his CINDY inhibitor, aspirin, beta makayla, and statin therapy. His blood pressure appears to be in a reasonable control. At this point, I do not think any cardiac testing is necessary. I do not think any changes in medications are necessary. Please contact Cardiology if there are any further questions. The patient did question his need for a carotid evaluation. The patient does not have any bruits on exam. At this point, I do not think there is any significant value in getting carotid ultrasound. This may be necessary as an outpatient. [id number]/[facility] #: [id number] [facility] HOSPITALRoselia
[2017-04-10] MEDS: Acetaminophen TAB* 325 MG PO PRN ×2 (01:00→22:26)
[2017-04-10] MEDS: Multivitamins/Minerals TAB PO SCH (07:46)
[2017-04-10] MEDS: Metoprolol Tartrate TAB* 25 MG PO SCH ×2 (07:47→20:37)
[2017-04-10] MEDS: metFORMIN* 500 MG TAB PO SCH ×2 (07:47→20:37)
[2017-04-10] MEDS: glipiZIDE TAB* 5 MG PO SCH (07:47)
[2017-04-10] MEDS: Atorvastatin* 40 MG TAB PO SCH (07:47)
[2017-04-10] MEDS: Lisinopril TAB* 10 MG PO SCH (07:48)
[2017-04-10] MEDS: Vitamin THERAPEUTIC TAB PO SCH (07:48)
[2017-04-10] MEDS: Aspirin EC Low Dose* 81 MG TAB.EC PO SCH (07:48)
[2017-04-10] MEDS: Sertraline* 50 MG TAB PO SCH (12:55)
--- NOTE | 2017-04-10 14:09 | PN ---
Subjective - Subjective Service Type: 97528 Hosp care 15 min low complexity Subjective: Patient noted to be visible at times in the milieu, social with select peers. Patient noted to have been disorganized in TP last night, expressing bizarre ideations. Patient has not been compliant with his CPAP. Patient encouraged to be compliant with his CPAP tonight. He was informed techs would attempt to adjust pressures and find a mask that may fit more comfortably. Patient reports back pain contributes to his poor sleep. He slept approx. 2 hrs last night, and has had poor sleep since admission. This provider talked with patient's Jessica today. She attests to patient's poor sleep and CPAP/med and appt non-compliance and his travel back to [place] to get medication refills. She reports patient has no hx of suicide attempt or substance abuse/dependence. Patient educated again on the importance of sleep. He was seen and cleared by internal control consultant. specification consultant has not been by. Patient reports frustration with the move and stress he's but on his family. He reports this triggered his SI. He reports no SI/HI or AH/VH again today. Patient's is working on getting patient back to the family home in [place] by plane. Tentative discharge on Saturday. Patient reports no further excessive urination. He reports appetite has been fair. Objective - Appearance Appearance: Obese Hygiene: Normal Grooming: Well Kept - Behavior Psychomotor Activities: Normal Exhibits Abnormal Movement: No - Attitude and Relatedness Attitude and Relatedness: Cooperative Eye Contact: Good - Speech Quality: Unpressured Latencies: Normal Quantity: Appropriate - Mood Patient's Decription of Mood: "Okay" - Affect Observed Affect: Fair Affect Consistent with: Euthymia - Thought Process Patient's Thought Process: Coherent Thought Content: No Passive Wish, No Suicidal Planning, No Homicidal Ideation, No Paranoid Ideation - Sensorium Experiencing Hallucinations: No, Sensorium is Clear Type of Hallucinations: Visual: No, Auditory: No, Command: No - Level of Consciousness Level of Consciousness: Alert Orientation: Yes Intact, Yes Orientated to Time, Yes Orientated to Place, Yes Orientated to Person - Impulse Control Impulse Control: Intact - Insight and Judgement Insight and Judgement: Fair - Group Participation Particating in Group Activities: Yes - Medication Management Medication Management Adherence: Yes Assessment - Assessment Merits Inpatient Hospitalization: For Immediate Safety, For Stabilization Inpatient DSM-IV Dx: 1. MDD, R, S w/PFs. 2. Illness Anxiety d/o Plan - Plan Treatment Plan: Name: ROSALINA ROWE Birthdate: 1965 [id number] 1. Continue admission to [facility] for safety and for symptom mx. 2. Continue Zoloft 50mg po qam for anxiety/depressive d/o. 3. Will re-start Mirtazepine at 7.5mg po qhs for insomnia as patient reports s/ e on Trazodone and requested med back. 4. Will D/C Trazodone due to reported s/e of arthralgias. 5. Will start Ultram 100mg po BID for pain/insomnia 2/2 pain. 6. Awaiting specification consultant. production support consultant has deemed patient stable on current cardiac med regimen. 7. Obtained collateral information from patient's ,Jessica #[phone]. 8. Patient to attend groups and participate in milieu activities. Continued Medication Management: Different Medication Medications: Current Medications Acetaminophen (Tylenol Tab*) 650 mg PO Q4H PRN PRN Reason: for pain; or Temp >101 F Last Admin: 04/10/17 01:00 Dose: 650 mg Al Hydrox/Mg Hydrox/Simethicone (Maalox Plus*) 30 ml PO Q4H PRN PRN Reason: INDIGESTION Last Admin: 04/05/17 20:05 Dose: 30 ml Aspirin (Aspirin Ec Low Dose*) 81 mg PO DAILY [facility] Last Admin: 04/10/17 07:48 Dose: 81 mg Atorvastatin Calcium (Lipitor*) 40 mg PO DAILY [facility] Last Admin: 04/10/17 07:47 Dose: 40 mg Glipizide (Glucotrol Tab*) 5 mg PO QAM [facility] Last Admin: 04/10/17 07:47 Dose: 5 mg Lisinopril (Prinivil Tab*) 10 mg PO DAILY [facility] Last Admin: 04/10/17 07:48 Dose: 10 mg Metformin HCl (Glucophage*) 1,000 mg PO BID [facility] Last Admin: 04/10/17 07:47 Dose: 1,000 mg Metoprolol Tartrate (Lopressor Tab*) 25 mg PO BID [facility] Last Admin: 04/10/17 07:47 Dose: 25 mg Mirtazapine (Remeron Tab*) 7.5 mg PO BEDTIME [facility] Multivitamins (Theragran Tab*) 1 tab PO DAILY [facility] Last Admin: 04/10/17 07:48 Dose: 1 tab Multivitamins/Minerals (Theragran/Minerals Tab*) 1 tab PO DAILY [facility] Last Admin: 04/10/17 07:46 Dose: 1 tab Nicotine (Nicotine Inhaler*) 10 mg INH Q2H PRN PRN Reason: CRAVING Nicotine Polacrilex (Nicotine Gum*) 2 mg PO Q2H PRN PRN Reason: CRAVING Nitroglycerin (Nitroglycerin Tab 0.4 Mg*) 0.4 mg SL Q5M PRN PRN Reason: CHEST PAIN Sertraline HCl (Zoloft*) 50 mg PO DAILY [facility] Last Admin: 04/10/17 12:55 Dose: Not Given - Discharge Plan Discharge Plan: Outpatient Follow Up Outpatient Program: [place] providers
[2017-04-10] MEDS: Mirtazapine TAB* 15 MG PO SCH (20:37)
[2017-04-10] MEDS: traMADol TAB* 50 MG PO SCH (20:38)
[2017-04-10] MEDS ORDERED: Tramadol ER(NF) 200 MG TAB.ER PO SCH (21:00)
[2017-04-11] MEDS: Atorvastatin* 40 MG TAB PO SCH (08:50)
[2017-04-11] MEDS: Aspirin EC Low Dose* 81 MG TAB.EC PO SCH (08:50)
[2017-04-11] MEDS: glipiZIDE TAB* 5 MG PO SCH (08:51)
[2017-04-11] MEDS: Multivitamins/Minerals TAB PO SCH (08:51)
[2017-04-11] MEDS: metFORMIN* 500 MG TAB PO SCH ×2 (08:51→21:39)
[2017-04-11] MEDS: traMADol TAB* 50 MG PO SCH ×2 (08:52→21:39)
[2017-04-11] MEDS: Vitamin THERAPEUTIC TAB PO SCH (08:53)
[2017-04-11] MEDS: Sertraline* 50 MG TAB PO SCH (08:55)
[2017-04-11] MEDS: Lisinopril TAB* 10 MG PO SCH (09:47)
[2017-04-11] MEDS: Metoprolol Tartrate TAB* 25 MG PO SCH ×2 (09:47→21:39)
--- NOTE | 2017-04-11 12:15 | PN ---
Subjective - Subjective Service Type: 63418 Hosp care 15 min low complexity Subjective: Patient noted to be visible at times in the milieu, social with select peers, and is participating in groups and milieu activities. Patient reports ongoing significant insomnia. Patient has not been compliant with his CPAP. Patient encouraged to be compliant with his CPAP tonight. His O2 sats during bedtime hours were wnl. Patient reports ongoing back pain which contributes to his poor sleep. He reports he slept approx. 2 hrs last night. treasury management sales consultant has not been by since second consultation. He reports no SI/HI or AH/VH again today. Patient reports having a plane ticket for Saturday to purchased. He is linear in [place] and future oriented in [place] to seek Rx's for a new CPAP machine by phone from his school counsellor and reports he will be setting up Cardiology and Oncology appts in [place]. Tentative discharge on Saturday. Patient reports no further excessive urination. He reports appetite has been fair. He denies SMITH, CP, and Abd pain. Objective - Appearance Appearance: Well Developed/Nourished Dysmorphic Features: No Hygiene: Normal Grooming: Fairly Well Kept - Attitude and Relatedness Attitude and Relatedness: Cooperative Eye Contact: Fair - Speech Quality: Unpressured Latencies: Normal Quantity: Appropriate - Mood Patient's Decription of Mood: "Okay" - Affect Observed Affect: Fair Affect Consistent with: Euthymia - Thought Process Patient's Thought Process: Coherent Thought Content: No Passive Wish, No Suicidal Planning, No Homicidal Ideation, No Paranoid Ideation - Sensorium Experiencing Hallucinations: No, Sensorium is Clear Type of Hallucinations: Visual: No, Auditory: No, Command: No - Level of Consciousness Level of Consciousness: Alert Orientation: Yes Intact, Yes Orientated to Time, Yes Orientated to Place, Yes Orientated to Person - Impulse Control Impulse Control: Intact - Insight and Judgement Insight and Judgement: Fair - Group Participation Particating in Group Activities: Yes - Medication Management Medication Management Adherence: Yes Assessment - Assessment Merits Inpatient Hospitalization: For Immediate Safety, For Stabilization Inpatient DSM-IV Dx: 1. MDD, R, S w/PFs. 2. Illness Anxiety d/o Plan - Plan Treatment Plan: Name: ROSALINA ROWE Birthdate: 1965 [id number] 1. Continue admission to [facility] for safety and for symptom mx. 2. Continue Zoloft 50mg po qam for anxiety/depressive d/o. 3. Continue Mirtazepine at 7.5mg po qhs for insomnia as patient reports s/e on Trazodone and requested med back. 4. Will D/C Trazodone due to reported s/e of arthralgias. 5. Patient gives informed consent to start Seroquel 50mg po qhs for significant insomnia. 6. Continue Ultram 100mg po BID for pain/insomnia 2/2 pain. 7. Awaiting treasury management sales consultant re-called. Patient's informed and she reports she will be setting patient up with PCP, Cariology and Oncology in [place]. regulatory affairs consultant has deemed patient stable on current cardiac med regimen. 8. Obtained collateral information from patient's ,Jessica #[phone]. 9. Patient to attend groups and participate in milieu activities. Continued Medication Management: Start Medication Medications: Current Medications Acetaminophen (Tylenol Tab*) 650 mg PO Q4H PRN PRN Reason: for pain; or Temp >101 F Last Admin: 04/10/17 22:26 Dose: 650 mg Al Hydrox/Mg Hydrox/Simethicone (Maalox Plus*) 30 ml PO Q4H PRN PRN Reason: INDIGESTION Last Admin: 04/05/17 20:05 Dose: 30 ml Aspirin (Aspirin Ec Low Dose*) 81 mg PO DAILY [facility] Last Admin: 04/11/17 08:50 Dose: 81 mg Atorvastatin Calcium (Lipitor*) 40 mg PO DAILY [facility] Last Admin: 04/11/17 08:50 Dose: 40 mg Glipizide (Glucotrol Tab*) 5 mg PO QAM [facility] Last Admin: 04/11/17 08:51 Dose: 5 mg Lisinopril (Prinivil Tab*) 10 mg PO DAILY [facility] Last Admin: 04/11/17 09:47 Dose: 10 mg Metformin HCl (Glucophage*) 1,000 mg PO BID [facility] Last Admin: 04/11/17 08:51 Dose: 1,000 mg Metoprolol Tartrate (Lopressor Tab*) 25 mg PO BID [facility] Last Admin: 04/11/17 09:47 Dose: 25 mg Mirtazapine (Remeron Tab*) 7.5 mg PO BEDTIME [facility] Last Admin: 04/10/17 20:37 Dose: 7.5 mg Multivitamins (Theragran Tab*) 1 tab PO DAILY [facility] Last Admin: 04/11/17 08:53 Dose: Not Given Multivitamins/Minerals (Theragran/Minerals Tab*) 1 tab PO DAILY [facility] Last Admin: 04/11/17 08:51 Dose: 1 tab Nicotine (Nicotine Inhaler*) 10 mg INH Q2H PRN PRN Reason: CRAVING Nicotine Polacrilex (Nicotine Gum*) 2 mg PO Q2H PRN PRN Reason: CRAVING Nitroglycerin (Nitroglycerin Tab 0.4 Mg*) 0.4 mg SL Q5M PRN PRN Reason: CHEST PAIN Sertraline HCl (Zoloft*) 50 mg PO DAILY [facility] Last Admin: 04/11/17 08:55 Dose: Not Given Tramadol HCl (Ultram*) 100 mg PO BID [facility] Last Admin: 04/11/17 08:52 Dose: 100 mg - Discharge Plan Discharge Plan: Outpatient Follow Up Outpatient Program: Private Clinician(s)
[2017-04-11] MEDS ORDERED: traMADol TAB* 50 MG PO ONE (15:36)
[2017-04-11] MEDS ORDERED: QUEtiapine TAB* 25 MG PO SCH (21:00)
[2017-04-11] MEDS: Mirtazapine TAB* 15 MG PO SCH (21:40)
[2017-04-12] MEDS: Acetaminophen TAB* 325 MG PO PRN (02:10)
[2017-04-12] MEDS: Sertraline* 50 MG TAB PO SCH (08:35)
[2017-04-12] MEDS: Metoprolol Tartrate TAB* 25 MG PO SCH (08:35)
[2017-04-12] MEDS: Vitamin THERAPEUTIC TAB PO SCH (08:35)
[2017-04-12] MEDS ORDERED: QUEtiapine TAB* 25 MG PO SCH (09:00)
[2017-04-12] MEDS: metFORMIN* 500 MG TAB PO SCH (09:15)
[2017-04-12] MEDS: Aspirin EC Low Dose* 81 MG TAB.EC PO SCH (09:16)
[2017-04-12] MEDS: Atorvastatin* 40 MG TAB PO SCH (09:16)
[2017-04-12] MEDS: traMADol TAB* 50 MG PO SCH (09:16)
[2017-04-12] MEDS: Lisinopril TAB* 10 MG PO SCH (09:17)
[2017-04-12] MEDS: Multivitamins/Minerals TAB PO SCH (09:17)
[2017-04-12] MEDS: glipiZIDE TAB* 5 MG PO SCH (09:17)
[2017-04-12 10:45] VITALS: BP 119/53
--- NOTE | 2017-04-15 02:48 | DS ---
Subjective - Subjective Service Types: [id number] [facility] [place] Day Mgmt simple under 30 min Subjective: Patient noted to be visible most of the day in the milieu, pleasant, social with peers and attending groups. Patient denied med s/e's. Patient again denied SI/HI and AH/VH. Patient is psychiatrically stable. Discharge plan has been discussed witth patient. Patient instructed to call the crisis hotline, 911, or self present to a local ED if SI recurs. Patient was discharged. Objective - Appearance Appearance: Well Developed/Nourished, Obese Dysmorphic Features: No Hygiene: Normal Grooming: Well Kept - Behavior Psychomotor Activities: Normal Exhibits Abnormal Movement: No - Attitude and Relatedness Attitude and Relatedness: Cooperative - Affect Observed Affect: Fair Affect Consistent with: Euthymia - Thought Process Patient's Thought Process: Coherent Thought Content: No Passive Wish, No Suicidal Planning, No Homicidal Ideation, No Paranoid Ideation - Sensorium Experiencing Hallucinations: No, Sensorium is Clear Type of Hallucinations: Visual: No, Auditory: No, Command: No - Level of Consciousness Level of Consciousness: Alert - Impulse Control Impulse Control: Intact - Group Participation Particating in Group Activities: Yes - Medication Management Medication Management Adherence: Yes Treatment Course & Assessment Clinical Course & Impression: HOSPITAL COURSE: On admission day #2, this provider took over as primary on the case, noted to be visible at times in the milieu. He is noted to continue to be focused on his failing physical health. He reported in the ED he came back to [place] to . He continues to make statements to staff reporting feelings he is ready to . Patient is noted to be med and meal compliant. Patient has completed all ADLs, displaying fair grooming and hygiene. Patient noted over the weekend to be calm ,cooperative, depressed in affect and manner. Patient reports stress also from his recently moving his family's move from [place] to [place] for his 's job as a CAR DISPATCHER and to give the kids better schools. Patient has allowed this provider to call his , Jessica(#[phone]). Unable to leave a message when this provider called today. Patient's contacted by staff over the weekend. Patient's noted to have backed up the patients history. Patient reports he has caused his family alot of pain. Patient reports he flew back to [place] to get his meds re-started. Patient reports he plans to return from [place] every three months as his workman comp pays for the trips. Patient reports his psychiatrist is Dr. Rosenbaum. Patient reports also >20lb wt. loss that he attributes completely to diuresis. He reports the wt. loss started 5 days ago, and reports more caloric intake daily in the last 5 days, yet he reports producing large quantities of urine. Patient reports not taking his opioid pain pills in >30 days since running out. Patient reports starting pain pills daily approx. 17yrs ago when his back was injured on the job. Patient also reports a hx of DM, HTN and significant KS and CAD hx. He is neutropenic and ED recommendation has been followed with this provider ordering an oncology consult. 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 Patient reports he has not slept in "more than a month". Patient reports hx multiple failed antidepressant trials. Patient reported his desire to stay on Zoloft as it has been most effective. Patient informed this provider will discuss meds with oncology prior to changing his psychotropic med regimen. On admission day #3,patient noted to be visible at times in the milieu, isolative mostly. Patient noted to be calm in affect and is more organized and linear in TP. He reports no longer feeling he is dying, but reports he got scared when, the week prior to his ED presentation he began losing significant weight and urinating more than nml. He reported on admission he'd lost 20lbs due to diuresing. He reports today he had not been compliant with his CPAP since his move from [place] to [place] 1 month ago. He reports he was compliant with it last night. Patient educated mood and anxiety and be affected by poor sleep and poor oxygenation from not sleeping with his CPAP each night. Patient acknowledged understanding. This provider still has not been able to speak with patient's . Patient aware this provider has consulted cardiology and oncology for mx of his neutropenia and caridac issues as patient has not been seen for these issues in months and has not been med compliant in at least 1 month. Patient reports poor sleep continues. Will initiate Trazodone 100mg po qhs for insomnia. Mirtazepine will be discontinued due to ineffectiveness. Still awaiting discussion with patient's for collateral information on med hx and his overall HPI. On admission day #5, patient noted to be visible at times in the milieu, social with select peers, and is participating in groups and milieu activities. Patient reports ongoing significantinsomnia. Patient has not been compliant with his CPAP. Patient encouraged to be compliant with his CPAP tonight. His O2 sats during bedtime hours were wnl. Patient reports ongoing back pain which contributes to his poor sleep. He reports he slept approx. 2 hrs last night. strategy planning consultant has not been by since second consultation. He reports no SI/HI or AH/VH again today. Patient reports having a plane ticket for Saturday to purchased. He is linear in [place] and future oriented in [place] to seek Rx's for a new CPAP machine by phone from his vice president investor relations and reports he will be setting up Cardiology and Oncology appts in [place]. Tentative discharge on tomorrow. Patient reports no further excessive urination. He reports appetite has been fair. He denies SMITH, CP, and Abd pain. On admission day #6, day of discharge, patient noted to be visible most of the day in the milieu, pleasant, social with peers and attending groups. Patient denied med s/e's. Patient again denied SI/HI and AH/VH. Patient is psychiatrically stable. Discharge plan has been discussed with patient. Patient instructed to call the crisis hotline, 911, or self present to a local ED if SI recurs. Patient was discharged. PERTINENT LABS: Laboratory Tests 04/05/17 04/05/17 04/05/17 09:05 09:05 09:05 WBC 4.2 RBC 4.43 Hgb 13.0 L Hct 38 L MCV 85 MCH 29 MCHC 34 RDW 14 Plt Count 75 L MPV 9 Neut % (Auto) 59.0 Lymph % (Auto) 25.8 [place] % (Auto) 8.8 Eos % (Auto) 5.8 Baso % (Auto) 0.6 Absolute Neuts (auto) 2.5 Absolute Lymphs (auto) 1.1 Absolute Monos (auto) 0.4 Absolute Eos (auto) 0.2 Absolute Basos (auto) 0 Absolute Nucleated RBC 0.01 Nucleated RBC % 0.2 Sodium 137 Potassium 4.0 Chloride 105 Carbon Dioxide 25 Anion Gap 7 BUN 9 Creatinine 0.77 Est GFR ( Amer) 135.9 Est GFR (Non-Af Amer) 105.7 BUN/Creatinine Ratio 11.7 Glucose 157 H POC Glucose (mg/dL) Hemoglobin A1c 7.9 H Calcium 9.7 Total Bilirubin 1.00 AST 58 H ALT 43 Alkaline Phosphatase 117 H Total Protein 7.4 Albumin 3.9 Globulin 3.5 Albumin/Globulin Ratio 1.1 Triglycerides Cholesterol LDL Cholesterol HDL Cholesterol Vitamin B12 TSH 0.72 Urine Color Urine Appearance Urine pH Ur Specific [place] Urine Protein Urine Ketones Urine Blood Urine Nitrate Urine Bilirubin Urine Urobilinogen Ur Leukocyte Esterase Urine Glucose Salicylates < 2.50 Acetaminophen < 15 Serum Alcohol < 10 04/05/17 04/05/17 04/07/17 11:00 17:03 07:28 WBC RBC Hgb Hct MCV MCH MCHC RDW Plt Count MPV Neut % (Auto) Lymph % (Auto) [place] % (Auto) Eos % (Auto) Baso % (Auto) Absolute Neuts (auto) Absolute Lymphs (auto) Absolute Monos (auto) Absolute Eos (auto) Absolute Basos (auto) Absolute Nucleated RBC Nucleated RBC % Sodium Potassium Chloride Carbon Dioxide Anion Gap BUN Creatinine Est GFR ( Amer) Est GFR (Non-Af Amer) BUN/Creatinine Ratio Glucose POC Glucose (mg/dL) 185 H 181 H Hemoglobin A1c Calcium Total Bilirubin AST ALT Alkaline Phosphatase Total Protein Albumin Globulin Albumin/Globulin Ratio Triglycerides Cholesterol LDL Cholesterol HDL Cholesterol Vitamin B12 TSH Urine Color Yellow Urine Appearance Clear Urine pH 6.0 Ur Specific [place] 1.016 Urine Protein Negative Urine Ketones Negative Urine Blood Negative Urine Nitrate Negative Urine Bilirubin Negative Urine Urobilinogen Positive H Ur Leukocyte Esterase Negative Urine Glucose Negative Salicylates Acetaminophen Serum Alcohol 04/08/17 04/08/17 04/09/17 01:02 07:42 01:16 WBC RBC Hgb Hct MCV MCH MCHC RDW Plt Count MPV Neut % (Auto) Lymph % (Auto) [place] % (Auto) Eos % (Auto) Baso % (Auto) Absolute Neuts (auto) Absolute Lymphs (auto) Absolute Monos (auto) Absolute Eos (auto) Absolute Basos (auto) Absolute Nucleated RBC Nucleated RBC % Sodium Potassium Chloride Carbon Dioxide Anion Gap BUN Creatinine Est GFR ( Amer) Est GFR (Non-Af Amer) BUN/Creatinine Ratio Glucose POC Glucose (mg/dL) 141 H 173 H 161 H Hemoglobin A1c Calcium Total Bilirubin AST ALT Alkaline Phosphatase Total Protein Albumin Globulin Albumin/Globulin Ratio Triglycerides Cholesterol LDL Cholesterol HDL Cholesterol Vitamin B12 TSH Urine Color Urine Appearance Urine pH Ur Specific [place] Urine Protein Urine Ketones Urine Blood Urine Nitrate Urine Bilirubin Urine Urobilinogen Ur Leukocyte Esterase Urine Glucose Salicylates Acetaminophen Serum Alcohol 04/09/17 04/09/17 04/09/17 07:18 08:07 08:07 WBC RBC Hgb Hct MCV MCH MCHC RDW Plt Count MPV Neut % (Auto) Lymph % (Auto) [place] % (Auto) Eos % (Auto) Baso % (Auto) Absolute Neuts (auto) Absolute Lymphs (auto) Absolute Monos (auto) Absolute Eos (auto) Absolute Basos (auto) Absolute Nucleated RBC Nucleated RBC % Sodium Potassium Chloride Carbon Dioxide Anion Gap BUN Creatinine Est GFR ( Amer) Est GFR (Non-Af Amer) BUN/Creatinine Ratio Glucose POC Glucose (mg/dL) 200 H Hemoglobin A1c Calcium Total Bilirubin AST ALT Alkaline Phosphatase Total Protein Albumin Globulin Albumin/Globulin Ratio Triglycerides 117 Cholesterol 133 LDL Cholesterol 74 HDL Cholesterol 35.7 Vitamin B12 597 TSH Urine Color Urine Appearance Urine pH Ur Specific [place] Urine Protein Urine Ketones Urine Blood Urine Nitrate Urine Bilirubin Urine Urobilinogen Ur Leukocyte Esterase Urine Glucose Salicylates Acetaminophen Serum Alcohol 04/10/17 04/11/17 04/12/17 07:28 07:40 06:08 WBC RBC Hgb Hct MCV MCH MCHC RDW Plt Count MPV Neut % (Auto) Lymph % (Auto) [place] % (Auto) Eos % (Auto) Baso % (Auto) Absolute Neuts (auto) Absolute Lymphs (auto) Absolute Monos (auto) Absolute Eos (auto) Absolute Basos (auto) Absolute Nucleated RBC Nucleated RBC % Sodium Potassium Chloride Carbon Dioxide Anion Gap BUN Creatinine Est GFR ( Amer) Est GFR (Non-Af Amer) BUN/Creatinine Ratio Glucose POC Glucose (mg/dL) 151 H 174 H 128 H Hemoglobin A1c Calcium Total Bilirubin AST ALT Alkaline Phosphatase Total Protein Albumin Globulin Albumin/Globulin Ratio Triglycerides Cholesterol LDL Cholesterol HDL Cholesterol Vitamin B12 TSH Urine Color Urine Appearance Urine pH Ur Specific [place] Urine Protein Urine Ketones Urine Blood Urine Nitrate Urine Bilirubin Urine Urobilinogen Ur Leukocyte Esterase Urine Glucose Salicylates Acetaminophen Serum Alcohol Discharge Meds: Home Medications Medication Instructions Recorded Confirmed Type metFORMIN* [Glucophage 500 MG TAB 1,000 mg PO BID 03/19/14 04/05/17 History *] Atorvastatin* [Lipitor 40 MG*] 40 mg PO DAILY 01/06/15 04/05/17 History glipiZIDE TAB* [Glucotrol TAB*] 5 mg PO QAM 03/25/15 04/05/17 History Aspirin EC Low Dose* [Ecotrin EC 81 mg PO DAILY 04/05/17 04/05/17 History Low Dose 81 MG*] Lisinopril TAB* [Prinivil TAB 10 10 mg PO DAILY 04/05/17 04/05/17 History MG*] Metoprolol Tartrate TAB* 25 mg PO BID 04/05/17 04/05/17 History [Lopressor TAB*] Multivitamins/Minerals TAB* 1 tab PO DAILY 04/05/17 04/05/17 History [Theragran/minerals TAB*] Nitroglycerin TAB 0.4 MG* 0.4 mg SL Q5M PRN tab 04/12/17 Rx QUEtiapine TAB* [Seroquel TAB*] 50 mg PO BEDTIME tab 04/12/17 Rx Sertraline* [Zoloft*] 50 mg PO DAILY tab 04/12/17 Rx Vitamin THERAPEUTIC TAB* 1 tab PO DAILY tab 04/12/17 Rx [Theragran TAB*] traMADol TAB* [Ultram*] 100 mg PO BID tab MDD 200 04/12/17 Rx Consultants: Oncology - Severe Neutropenia mx Cardiology - Mx of Cardiac meds as patient has been non-compliant x 1 month Follow-Up: Appts for within the next 2 weeks scheduled by for mx. Clear for Discharge: Adequate Clinical Respons, Acceptable Safety Profile Inpatient DSM-IV Dx: 1. MDD, R, S w/PFs. 2. Illness Anxiety d/o Discharge Planning - Discharge Planning Discharge Plan: Outpatient Follow Up Outpatient Program: [facility] Recommendations for Continuing Care: Medication Management Discharge Planning: Prescriptions provided for discharge [] Yes [] No Follow up care details as per social work arrangements. Patient response to discharge plan: [] eager for discharge [] agreeable with discharge plan [] ambivalent about discharge [] disagrees with discharge today
== END 2017-04-12 13:00 | disposition home or self-care (01) | DRG 885 ==
LOC: ED 10:04 → BSU 14:55
PROVIDERS: ADMIT Psychiatry & Neurology Psychiatry; ATTEND Psychiatry & Neurology Psychiatry
PROC: 5A09357 Assistance with Respiratory Ventilation, Less than 24 Consecutive Hours, Continuous Positive Airway Pressure (ICD-10-PCS; principal; 2017-04-06)
DX: F33.3 Major depressive disorder, recurrent, severe with psychotic symptoms (principal); E11.9 Type 2 diabetes mellitus without complications; R45.851 Suicidal ideations; I10 Essential (primary) hypertension; I25.10 Atherosclerotic heart disease of native coronary artery without angina pectoris; K21.9 Gastro-esophageal reflux disease without esophagitis; M19.90 Unspecified osteoarthritis, unspecified site; G89.29 Other chronic pain; M54.9 Dorsalgia, unspecified; G47.33 Obstructive sleep apnea (adult) (pediatric); E66.9 Obesity, unspecified; F41.9 Anxiety disorder, unspecified; E78.5 Hyperlipidemia, unspecified; G47.00 Insomnia, unspecified; F06.4 Anxiety disorder due to known physiological condition; I25.2 Old myocardial infarction; Z82.49 Family history of ischemic heart disease and other diseases of the circulatory system; Z68.32 Body mass index [BMI] 32.0-32.9, adult; Z86.73 Personal history of transient ischemic attack (TIA), and cerebral infarction without residual deficits; Z83.3 Family history of diabetes mellitus; Z80.42 Family history of malignant neoplasm of prostate; Z95.5 Presence of coronary angioplasty implant and graft
CPT/HCPCS: 36415; 80053; 80061; 80320; 80329; 81003; 82607; 83036; 84443; 85025; 93005; 94660; 99222; 99231; 99238; A9270-GY; G0480

== ENCOUNTER 2017-04-13 04:47 | Emergency (ER) | payer MEDICARE ==
[2017-04-13 04:55] VITALS: BP 148/89
== END 2017-04-13 05:30 | disposition left against medical advice (07) ==
LOC: ED 04:47
DX: E86.0 Dehydration (principal); Z53.21 Procedure and treatment not carried out due to patient leaving prior to being seen by health care provider